=== PATIENT | female | born 1975 | race Caucasian/White ===

== ENCOUNTER 2019-06-29 08:14 | Outpatient (CLI) | payer MEDICARE ==
[~2019-06-29] VITALS: Ht 160 cm; Wt 51.7 kg
[2019-06-29 08:36] LABS: BASOPHILS 0.6 % (0-2); EOSINOPHILS 6.1 % (0-7); HEMATOCRIT 36.8 % (36.0-48.0); IMMATURE GRANULOCYTES 0.1 % (0-5); LYMPHOCYTES 31.4 % (15-50); MCH 30.7 pg (26.0-34.0); MCHC 32.6 g/dL (31.0-37.0); MCV 94.1 fL (80.0-100.0); MEAN PLATELET VOLUME 10.1 fL (7.4-10.4); MONOCYTES 10.8 % (2-11); PLATELET COUNT 327 10x3/uL (130-400); RBC 3.91 10x6/uL (4.00-5.40); RDW 15.3 % (11.5-14.5); WBC 6.8 10x3/uL (4.8-10.8)
[2019-06-29 08:50] LABS: ANION GAP 15.1 mmol/L (8-16); CARBON DIOXIDE 26.4 mmol/L (21.0-32.0); CREATININE - SERUM 4.5 mg/dL (0.6-1.3); POTASSIUM - SERUM 4.5 mmol/L (3.5-5.1)
[2019-06-29 09:05] LABS: INR 0.9 (0.85-1.17); PROTIME 11.6 SECONDS (11.6-15.0)
[2019-06-29] MEDS ORDERED: LISINOPRIL20 MG PO (09:17)
[2019-06-29] MEDS ORDERED: COREG12.5 MG PO (09:18)
[2019-06-29] MEDS ORDERED: HYDRALAZINE HCL50 MG PO (09:21)
[2019-06-29] MEDS ORDERED: LANTUS SOL100 UNIT/1 SC (09:21)
[2019-06-29] MEDS ORDERED: HUMALOG MIX 75/23 ML SC (09:22)
[2019-06-29] MEDS ORDERED: VITAMIN B-12500 MCG PO (09:23)
[2019-06-29 09:24] VITALS: Ht 160 cm; Wt 51.7 kg
[2019-06-29 09:46] LABS: HCG SERUM NEGATIVE (NEGATIVE)
--- NOTE | 2019-06-29 12:40 | NUR ---
1235-PATIENT REQUEST IV OUT TO BE DISCHARGED HOME DUE TO PROCEDURE BEING POSTPONED A FEW HOURS. SIGNED DISCHARGE PAPERWORK WITH INSTRUCTIONS TO CONTACT 'S OFFICE TO RESCHEDULE. LEFT WITH MOTHER
== END 2019-06-29 08:15 | disposition home or self-care (01) ==
LOC: D.OPS 08:14 → EDSTATUS 11:15 → D.OPS 12:00
PROVIDERS: Anesthesiology; Surgery; ATTEND Internal Medicine Nephrology
DX: N18.6 End stage renal disease (principal); Z53.9 Procedure and treatment not carried out, unspecified reason; Z01.812 Encounter for preprocedural laboratory examination; E11.9 Type 2 diabetes mellitus without complications

== ENCOUNTER 2019-08-24 06:00 | Day surgery (SDC) | payer MEDICARE ==
[2019-08-23 15:54] LABS: BASOPHILS 0.6 % (0-2); EOSINOPHILS 3.1 % (0-7); HEMATOCRIT 42.4 % (36.0-48.0); HEMOGLOBIN 13.8 g/dL (12-16); IMMATURE GRANULOCYTES 0.2 % (0-5); LYMPHOCYTES 45.5 % (15-50); MCH 30.9 pg (26.0-34.0); MCHC 32.5 g/dL (31.0-37.0); MCV 95.1 fL (80.0-100.0); MEAN PLATELET VOLUME 10.6 fL (7.4-10.4); MONOCYTES 11.5 % (2-11); NEUTROPHILS 39.1 % (40-80); PLATELET COUNT 332 10x3/uL (130-400); RBC 4.46 10x6/uL (4.00-5.40); RDW 14.4 % (11.5-14.5); WBC 6.6 10x3/uL (4.8-10.8)
[2019-08-23 16:02] LABS: INR 0.89 (0.85-1.17); PROTIME 11.5 SECONDS (11.6-15.0)
[2019-08-23 16:11] LABS: ANION GAP 11.4 mmol/L (8-16); CALCIUM 9.2 mg/dL (8.5-10.1); CARBON DIOXIDE 31.8 mmol/L (21.0-32.0); CREATININE - SERUM 5.8 mg/dL (0.6-1.3); POTASSIUM - SERUM 4.2 mmol/L (3.5-5.1)
[~2019-08-24] VITALS: Ht 160 cm; Wt 51.7 kg
[~2019-08-24 06:00] MED LIST: COREG12.5 MG PO; HUMALOG MIX 75/23 ML SC; HYDRALAZINE HCL50 MG PO; LANTUS SOL100 UNIT/1 SC; LISINOPRIL20 MG PO; NORVASC10 MG PO; VITAMIN B-12500 MCG PO
[2019-08-24 06:38] VITALS: Ht 160 cm; Wt 51.7 kg
[2019-08-24] MEDS ORDERED: RENAGEL800 MG PO (06:55)
--- NOTE | 2019-08-24 10:25 | NUR ---
MEETS DISCHARGE CRITERIA
[2019-08-24] MEDS ORDERED: ULTRAM50 MG PO (10:36)
--- NOTE | 2019-08-28 15:18 | OP ---
PATIENT NAME: KISHOR FROST MEDICAL RECORD: [id number] :73 LOCATION:[facility] ADMISSION DATE: SURGEON: POWER AUGUSTINE MD DATE OF OPERATION: 08/24/2019 REFERRED BY: Carl Krause MD PREOPERATIVE DIAGNOSES: End-stage renal disease, on hemodialysis and dependence on dialysis. POSTOPERATIVE DIAGNOSES: End-stage renal disease, on hemodialysis and dependence on dialysis. OPERATION PERFORMED: Creation of a Flash type AV fistula, left arm and in preparation for subsequent creation of a translocated basilic vein fistula. SURGEON: Power Augustine MD ANESTHESIA: Regional nerve block and MAC per INSULATION MANAGER. PREOPERATIVE NOTE: Ms. Frost is a 44-year-old white female patient with end-stage renal disease, who started dialysis now with a catheter. She is to have a fistula created today if possible. She has very small veins on her preoperative mapping and she is rather petite individual. I believe I can perform a basilic vein fistula, though probably a 2-stage procedure would be necessary. The patient was prepped and draped in sterile manner after regional block was administered and she was monitored and sedated per INSULATION MANAGER. I examined her with ultrasound using a venous tourniquet and topical nitroglycerin. She proved to have what might have been a satisfactory cephalic vein, but she had a much nicer basilic vein, which was in close proximity to the brachial artery and I elected to go ahead with the brachiobasilic. I made a transverse incision on the medial aspect of the antecubital space and exposed and dissected the median cubital vein branch to the basilic. It was treated with topical papaverine. It was ligated distally and transected and bevelled and flushed with heparinized saline. The brachial artery was exposed and controlled with Silastic loops. It was opened and flushed proximally and distally with heparinized saline and the anastomosis was then performed end of vein to side of artery with continuous running 7-0 Prolene. When this was complete and the occluding loops were released, excellent flow immediately developed within the fistula. Doppler examination revealed continuous pulsatile flow and preservation and flow in the brachial artery proximally and distally. There was preservation of flow in the radial and ulnar arteries by Doppler as well. The wound was closed with interrupted inverted 3-0 Vicryl and then running intracuticular 4-0 Monocryl and Dermabond glue. It was dressed with Maxorb Ag, Tegaderm, and Cavilon skin prep. She was then awakened from her sedation and taken to the recovery room in stable condition. Blood loss during the procedure was trivial and unreplaced. Sponges, instruments, and needles were accounted for. OPERATIVE REPORT [id number] DANNYKISHOR Valera No specimen was submitted and no drain was used. TRANSINT:[id number] Voice Confirmation ID: [id number] DOCUMENT ID: [id number] POWER AUGUSTINE MD at 1518 CC: CARL KRAUSE [id number] DICTATION DATE: 08/24/19 1617 PROJECT ADMINISTRATOR: [id number] [facility] [place] 08/24/19 [facility] [address] [place] [address]
[2019-10-04] MEDS ORDERED: VITAMIN D31000 UNIT PO (15:20)
== END 2019-08-24 12:15 | disposition home or self-care (01) ==
LOC: D.OPS 06:00 → D.PAN 08:00 → D.OPS 08:00
PROVIDERS: Surgery; ATTEND Internal Medicine Nephrology
DX: E11.22 Type 2 diabetes mellitus with diabetic chronic kidney disease (principal); N18.6 End stage renal disease; Z99.2 Dependence on renal dialysis

== ENCOUNTER 2019-10-05 07:22 | Day surgery (SDC) | payer MEDICARE ==
[2019-10-04 15:57] LABS: BASOPHILS 0.6 % (0-2); EOSINOPHILS 7.9 % (0-7); HEMATOCRIT 31.8 % (36.0-48.0); HEMOGLOBIN 10.5 g/dL (12-16); IMMATURE GRANULOCYTES 0.1 % (0-5); LYMPHOCYTES 36.7 % (15-50); MCH 30.4 pg (26.0-34.0); MCV 92.2 fL (80.0-100.0); MEAN PLATELET VOLUME 10.6 fL (7.4-10.4); MONOCYTES 9.5 % (2-11); NEUTROPHILS 45.2 % (40-80); PLATELET COUNT 305 10x3/uL (130-400); RBC 3.45 10x6/uL (4.00-5.40); RDW 13.9 % (11.5-14.5); WBC 7.1 10x3/uL (4.8-10.8)
[2019-10-04 16:17] LABS: CALCIUM 7.9 mg/dL (8.5-10.1); CARBON DIOXIDE 26.4 mmol/L (21.0-32.0); CREATININE - SERUM 5.1 mg/dL (0.6-1.3); POTASSIUM - SERUM 4.4 mmol/L (3.5-5.1)
[2019-10-04 16:27] LABS: INR 0.93 (0.85-1.17)
[~2019-10-05] VITALS: Ht 160 cm; Wt 51.7 kg
[~2019-10-05 07:22] MED LIST changes: +RENAGEL800 MG PO; +ULTRAM50 MG PO; +VITAMIN D31000 UNIT PO
[2019-10-05] MEDS ORDERED: HUMALOG 30100 UNITS/ SC (08:20)
[2019-10-05 08:35] VITALS: Ht 160 cm; Wt 51.7 kg
[2019-10-05 12:51] LABS: HCG SERUM NEGATIVE (NEGATIVE)
--- NOTE | 2019-10-05 14:10 | NUR ---
AFTER CONSULTING DR GREEN FURTHER ORDERS FOR 15 UNITS OF IV HUMULIN R AND RECHECK IN 20-25 MINS. CONSULT RENAL IF HYPERGLYCEMIA CONTINUES.
--- NOTE | 2019-10-05 15:01 | NUR ---
1444-REC'D FROM RR. AWAKE AND ALERT,VSS, DENIES PAIN. LEFT ARM IN SLING,DRESSING CDI. ABLE TO PALPATE THRILL AND HEAR BRUIT.IV PATENT TO RIGHT HAND AT KVO. REVIEWED DISCHARGE CRITERIA AND WILL BE MONITORING FSBS TWO MORE TIMES BEFORE DISCHARGE.VERBALIZED UNDERSTANDING. ICE WATER AT BEDSIDE. CL IN EASY REACH.MOTHER AT BEDSIDE.
--- NOTE | 2019-10-05 15:04 | NUR ---
1450-ORDERED FULL LIQUID RENAL DIABETIC TRAY FROM DIETARY.
[2019-10-05] MEDS ORDERED: HYDROCODON-ACE1 EAC7 PO (15:20)
--- NOTE | 2019-10-05 15:24 | NUR ---
1515-BS 115. VSS. DENIES PAIN. DRESSING TO LUE CDI,SLING IN PLACE.DIABETIC RENAL FULL LIQUID TRAY TO ROOM.CL IN EASY REACH. MOTHER AND SON AT BEDSIDE.
--- NOTE | 2019-10-05 16:40 | NUR ---
1521-FSBS 155. VSS. DENIES PAIN.SLING IN PLACE TO LEFT ARM.DRESSING CDI. ABLE TO PALPATE THRILL AND AUSCULATE BRUIT. CAP REFILL WNL.FULL LIQUID TRAY TO ROOM. CL IN EASY REACH.MOTHER AND SON AT BEDSIDE
--- NOTE | 2019-10-05 16:43 | NUR ---
1548-FSBS 115 TOLERATED FULL LIQUID TRAY.DENIES PAIN.VSS. SLING IN PLACE AND DRESSING CDI. ABLE TO PALPATE THRILL AND AUSCULATE BRUIT. CAP REFILL WNL,SKIN WARM TO TOUCH.
--- NOTE | 2019-10-05 16:44 | NUR ---
1600-DISCHARGE CRITERIA MET. REVIEWED POST OPERATIVE INSTRUCTIONS AND TO CALL DR AUGUSTINE'S OFFICE TUESDAY MORNING TO SCHEDULE HER FOLLOW UP NEXT WEEK. VERBALIZED UNDERSTANDING WITHOUT FURTHER QUESTIONS OR CONCERNS. DENIES PAIN,VSS,VERY PLEASANT. PT HAS PEANUT BUTTER CLOSE INCASE SHE FEELS BLOOD SUGAR LOWERS.
--- NOTE | 2019-10-05 16:47 | NUR ---
1608-ESCORTED OUT VIA W/C. PT IS NOT FROM THIS AREA. DIRECTIONS GIVEN TO NEAREST [facility] AND [facility]. VERY PLEASANT AND HAPPY WITH CARE GIVEN DURING STAY. MOTHER AWAITING TO DRIVE.
== END 2019-10-05 16:08 | disposition home or self-care (01) ==
LOC: D.OPS 07:22 → D.PAN 08:00 → D.OPS 09:30 → D.PAN 10:00 → D.OPS 10:00
PROVIDERS: Anesthesiology; Surgery; ATTEND Internal Medicine Nephrology
DX: E11.22 Type 2 diabetes mellitus with diabetic chronic kidney disease (principal); N18.6 End stage renal disease; Z99.2 Dependence on renal dialysis